=== PATIENT | male | born 2000 | race Caucasian/White ===

== ENCOUNTER 2022-04-08 19:03 | Emergency (ER) | payer OTHER, MEDICAID | END 2022-04-08 20:20 | disposition home or self-care (01) | LOC: NAV ERS 19:03 | DX: S83.422A Sprain of lateral collateral ligament of left knee, initial encounter (principal); F17.290 Nicotine dependence, other tobacco product, uncomplicated; X50.9XXA Other and unspecified overexertion or strenuous movements or postures, initial encounter; Y93.39 Activity, other involving climbing, rappelling and jumping off; Y92.838 Other recreation area as the place of occurrence of the external cause ==